=== PATIENT | female | born 1975 | race Asian ===

== ENCOUNTER → 2020-06-14 | Outpatient (CLI) | payer OTHER ==
[~2020-06-14] MED LIST: CEFAZOLIN SODIUM 1000MG/VIAL ONE; EPHEDRINE SULFATE 50MG/ML VIAL ONE; FENTANYL CITRATE/PF 50MCG/ML 2ML VIAL ONE; MORPHINE SULFATE/PF 1MG/ML 10ML AMP ONE; OXYTOCIN 10 UNITS/ML 1ML ONE; SODIUM CHLORIDE 0.9% 10ML VIAL ONE
== END | disposition home or self-care (01) ==
LOC: LAB 14:26
PROVIDERS: ATTEND Obstetrics & Gynecology
DX: Z03.818 Encounter for observation for suspected exposure to other biological agents ruled out (principal)
CPT/HCPCS: 87635; C9803

== ENCOUNTER 2020-06-17 07:26 | Inpatient (IN) | payer OTHER ==
[~2020-06-17] VITALS: Ht 152.4 cm; Wt 72.6 kg
[2020-06-17] MEDS ORDERED: CARBOPROST TROMETHAMINE 250 MCG/ML AMPUL IM PRN (08:45)
[2020-06-17] MEDS ORDERED: DEXT 5%/LR + PITOCIN 20UNITS/L 1,000 ML IV SCH (08:45)
[2020-06-17] MEDS ORDERED: DEXT 5%/LACTATED RINGERS 1,000 ML IV SCH (08:45)
[2020-06-17] MEDS ORDERED: NALOXONE HCL 0.4 MG/ML 1ML VIAL IM PRN (08:45)
[2020-06-17] MEDS ORDERED: LACTATED RINGERS 1,000 ML IV SCH ×2 (08:45→09:01)
[2020-06-17] MEDS ORDERED: LIDOCAINE HCL 1% 20ML VIAL (Pyxis) INJ INFIL SCH (08:45)
[2020-06-17] MEDS ORDERED: MISOPROSTOL 100MCG TABLET VG SCH (08:45)
[2020-06-17] MEDS ORDERED: METHYLERGONOVINE MALEATE 0.2 MG/ML IM PRN (08:45)
[2020-06-17] MEDS ORDERED: BUTORPHANOL TARTRATE 2 MG/ML VIAL IV PRN (08:45)
[2020-06-17 09:00] LABS: BASOPHILS % 0.9 % (0.0-2.0); EOSINOPHILS % 1.3 % (0.0-5.0); HEMATOCRIT. 40.5 % (36.0-48.0); HEMOGLOBIN. 14.1 g/dL (12.0-16.0); LYMPHOCYTES % 15.2 % (20.0-50.0); MEAN CORPUSCULAR VOLUME 91.7 fL (81.0-99.0); MEAN PLATELET VOLUME 9.5 fl (7.4-10.4); NEUTROPHILS % 76.6 % (40.0-76.0); PLATELET 208 x1000/uL (130-400); RED BLOOD CELL COUNT 4.42 mill/uL (4.2-5.4); RED CELL DISTRIBUTION WIDTH 13.4 % (11.6-14.6)
[2020-06-17 09:06] LABS: CLARITY URINE CLEAR (CLEAR); COLOR URINE YELLOW (YELLOW); KETONES URINE NEGATIVE (NEGATIVE); LEUKOCYTE ESTERASE URINE NEGATIVE (NEGATIVE); NITRITE URINE NEGATIVE (NEGATIVE); OCCULT BLOOD URINE NEGATIVE (NEGATIVE); PROTEIN URINE NEGATIVE (NEGATIVE); SPECIFIC GRAVITY URINE 1.009 (1.005-1.030); UROBILINOGEN URINE 0.2 E.U./dL (0.2-1.0)
[2020-06-17 09:12] LABS: INR 0.9; PARTIAL THROMBOPLASTIN TIME 25.6 sec (23.4-31.0); PROTHROMBIN TIME 9.3 sec (9.6-11.0)
[2020-06-17 09:35] LABS: *AMPHETAMINES SCREEN URINE NEGATIVE (NEGATIVE); *BENZODIAZEPINES SCREEN URINE NEGATIVE (NEGATIVE); *COCAINE SCREEN URINE NEGATIVE (NEGATIVE); CANNABINOID URINE SCREEN NEGATIVE (NEGATIVE); METHADONE URINE SCREEN NEGATIVE (NEGATIVE)
[2020-06-17 09:36] LABS: *BARBITURATES SCREEN URINE NEGATIVE (NEGATIVE); OPIATES URINE SCREEN NEGATIVE (NEGATIVE); PHENCYCLIDINE URINE SCREEN NEGATIVE (NEGATIVE)
[2020-06-17] MEDS ORDERED: HEMORRHOIDAL SUPP PR PRN (10:45)
[2020-06-17] MEDS ORDERED: ONDANSETRON HCL 4MG/2ML INJ IV PRN ×2 (10:45→11:45)
[2020-06-17] MEDS ORDERED: BISACODYL 10MG SUPP PR PRN (10:45)
[2020-06-17] MEDS ORDERED: LANOLIN OINT 7GM TUBE TOP PRN (10:45)
[2020-06-17] MEDS ORDERED: DIPHENHYDRAMINE 25MG CAPSULE PO PRN (10:45)
[2020-06-17] MEDS ORDERED: IBUPROFEN 400MG TABLET PO PRN (10:45)
[2020-06-17] MEDS ORDERED: ACETAMINOPHEN WITH CODEINE 300/30MG TABLET PO PRN (10:45)
[2020-06-17 11:31] LABS: HEPATITIS B SURFACE ANTIGEN NEGATIVE
[2020-06-17] MEDS ORDERED: HYDROMORPHONE HCL/PF 2MG/ML CPJ IV PRN (11:45)
[2020-06-17] MEDS ORDERED: LABETALOL 5MG/ML SYR 20 MG/4 ML SYRINGE IV PRN (11:45)
[2020-06-17] MEDS ORDERED: DIPHENHYDRAMINE 50MG/ML VIAL IV PRN (11:45)
[2020-06-17] MEDS ORDERED: BUTORPHANOL TARTRATE 2 MG/ML VIAL IM PRN (11:45)
[2020-06-17] MEDS ORDERED: MEPERIDINE HCL/PF 25MG/ML CPJ IV PRN (11:45)
[2020-06-17] MEDS ORDERED: KETOROLAC 30MG/ML VIAL IV PRN (11:45)
[2020-06-17] MEDS: DEXT 5%/LR + PITOCIN 20UNITS/L 1,000 ML IV SCH ×2 (14:03→21:56)
[2020-06-17 14:45] VITALS: BP 119/72
[2020-06-17 16:00] VITALS: BP 121/68
[2020-06-17 19:45] VITALS: BP 119/74
[2020-06-17 20:40] VITALS: BP 103/69
[2020-06-17] MEDS ORDERED: DOCUSATE SODIUM 100MG CAPSULE PO SCH (21:00)
[2020-06-18 00:20] VITALS: BP 129/85
[2020-06-18 00:50] VITALS: BP 103/54
[2020-06-18 04:00] VITALS: BP 100/65
[2020-06-18 07:24] LABS: BASOPHILS % 0.5 % (0.0-2.0); EOSINOPHILS % 1.6 % (0.0-5.0); HEMATOCRIT. 37.8 % (36.0-48.0); HEMOGLOBIN. 12.9 g/dL (12.0-16.0); LYMPHOCYTES % 8.5 % (20.0-50.0); MEAN CORPUSCULAR HEMOGLOBIN 31.7 pg (28.0-32.0); MEAN CORPUSCULAR VOLUME 92.9 fL (81.0-99.0); MEAN PLATELET VOLUME 9.4 fl (7.4-10.4); MONOCYTES % 5.3 % (2.0-8.0); NEUTROPHILS % 84.1 % (40.0-76.0); PLATELET 193 x1000/uL (130-400); RED BLOOD CELL COUNT 4.07 mill/uL (4.2-5.4); RED CELL DISTRIBUTION WIDTH 13.4 % (11.6-14.6)
[2020-06-18 08:00] VITALS: BP 126/75
[2020-06-18] MEDS: PRENATAL VIT/FE FUMARATE/FA TABLET PO SCH (08:57)
[2020-06-18] MEDS: FERROUS SULFATE 325MG TABLET PO SCH (08:57)
[2020-06-18] MEDS: SIMETHICONE 80MG TABLET CHEW PO SCH ×2 (08:58→22:23)
[2020-06-18] MEDS: IBUPROFEN 800MG TABLET PO PRN ×2 (08:58→18:08)
[2020-06-18 14:00] VITALS: BP 118/64
[2020-06-18 19:30] VITALS: BP 113/68
[2020-06-18] MEDS: MAGNESIUM/ALUMINUM HYDROXIDE/SIMETHICONE 30ML UDC PO SCH (22:23)
[2020-06-19] VITALS: BP 134/82
[2020-06-19 04:00] VITALS: BP 124/80
[2020-06-19] MEDS ORDERED: MEASLES,MUMPS&RUBELLA VACCINE 1 VIAL SUBCUT ONE (07:15)
[2020-06-19 08:04] VITALS: BP 109/82
[2020-06-19] MEDS: SIMETHICONE 80MG TABLET CHEW PO SCH (09:00)
[2020-06-19] MEDS: MAGNESIUM/ALUMINUM HYDROXIDE/SIMETHICONE 30ML UDC PO SCH (09:23)
[2020-06-19] MEDS: FERROUS SULFATE 325MG TABLET PO SCH (09:23)
[2020-06-19] MEDS: IBUPROFEN 800MG TABLET PO PRN (09:24)
[2020-06-19] MEDS: PRENATAL VIT/FE FUMARATE/FA TABLET PO SCH (09:24)
== END 2020-06-19 12:25 | disposition home or self-care (01) | DRG 788 ==
LOC: 8 EST LDRP 07:26 → 8EST 14:15
PROVIDERS: ADMIT Obstetrics & Gynecology; ATTEND Obstetrics & Gynecology
PROC: 10D00Z1 Extraction of Products of Conception, Low, Open Approach (ICD-10-PCS; principal; 2020-06-17)
DX: O34.211 Maternal care for low transverse scar from previous cesarean delivery (principal); D64.9 Anemia, unspecified; O99.02 Anemia complicating childbirth; Z37.0 Single live birth; Z3A.39 39 weeks gestation of pregnancy
CPT/HCPCS: 36415; 80305; 81003; 85025; 86592; 86703; 86762; 86850; 86900; 87340; 88307; 90707; J0690; J1885; J2274; J2590; J3010; J3490